=== PATIENT | female | born 1965 | race Caucasian/White ===

== ENCOUNTER → 2018-03-04 | Outpatient (REF) | payer OTHER ==
[~2018-03-04] MED LIST: AMLODIPINE BESYL5 MG PO; ATENOLOL50 MG PO; CIPROFLOXACN500 MG PO; DEMADEX100 MG PO; DIOVAN160 MG PO; FUROSEMIDE20 MG PO; IBUPROFEN200 MG PO; LORTAB 7.5-3251 TAB PO; LOTRISONE EX; MECLIZINE25 MG PO; METFORMIN500 M2 PO; OMEPRAZOLE10 MG PO; PREDNISONE20 MG PO; TORSEMIDE20 M1 PO; TRAMADOL HCL50 MG PO; XANAX0.25 MG PO; ZYLOPRIM100 MG PO
[2018-03-04 15:40] LABS: HEMATOCRIT 40.2 % (37.0-47.0); HEMOGLOBIN 13.9 g/dl (12.0-16.0); IMMATURE GRANULOCYTES 0.5 % (0.0-5.0); MEAN CELL VOLUME 87.6 fL CALC (80.0-100.0); MEAN CORPUSCULAR HGB 30.3 pG CALC (26.0-32.0); MEAN CORPUSCULAR HGB CONC 34.6 g/L CALC (32.0-36.0); NEUT# 3.88 thou/uL (2.00-7.15); RED BLOOD COUNT 4.59 mill/uL (4.20-5.60); RED CELL DISTRI WIDTH 13.5 % (11.5-15.5)
[2018-03-04 15:56] LABS: ALBUMIN 4.7 g/dL (3.2-5.0); ALKALINE PHOSPHATASE 82 u/l (38-126); AMYLASE 70 u/l (30-110); ANION GAP 14 (6-22 (CALC)); BILIRUBIN, TOTAL 0.4 mg/dL (0.0-1.4); BUN 9 mg/dL (7-17); BUN/CREATININE RATIO 13 (12-20 (CALC)); CALCULATED LDLCHOLESTEROL 143 mg/dL (62-129 (CALC)); CARBON DIOXIDE 30 mmol/l (22-30); CHLORIDE 101 mmol/l (95-108); CHOLESTEROL HDL RATIO 4.8 (<4.4 (CALC)); CREATININE 0.7 mg/dL (0.5-1.0); GFR > 60 ML/MIN (>=60 (CALC)); GFR FOR AFR.AMER. > 60 ML/MIN (>=60 (CALC)); HDL CHOLESTEROL 60 mg/dL (>=40); LIPASE 118 u/l (23-300); SGOT/AST 39 u/l (14-36); SODIUM 141 mmol/l (137-146); TOTAL CHOLESTEROL 286 mg/dl (0-199); TOTAL PROTEIN 8.3 g/dL (6.3-8.2); VLDL CHOLESTROL 83 mg/dl (2-49 (CALC))
[2018-03-04 15:59] LABS: TOTAL TRIGLYCERIDES 416 mg/dl (30-149)
== END | disposition home or self-care (01) | DRG 639 ==
LOC: LAB 15:23
PROVIDERS: ATTEND Nurse Practitioner Adult Health
DX: E11.9 Type 2 diabetes mellitus without complications (principal); I10 Essential (primary) hypertension; E78.49 Other hyperlipidemia; R10.9 Unspecified abdominal pain

== ENCOUNTER 2018-05-02 02:49 | Emergency (ER) | payer OTHER ==
[~2018-05-02] VITALS: Ht 157.5 cm; Wt 78.0 kg
[2018-05-02 04:12] LABS: INFLUENZA B NONE DETECTED (NONE DETECT)
[2018-05-02] MEDS ORDERED: AMOXICILLIN500 MG PO (04:23)
[2018-05-02 04:50] VITALS: BP 150/88
== END 2018-05-02 04:50 | disposition home or self-care (01) | DRG 153 ==
LOC: ED 02:49
PROVIDERS: Emergency Medicine
DX: H66.91 Otitis media, unspecified, right ear (principal); J06.9 Acute upper respiratory infection, unspecified; H92.01 Otalgia, right ear; R50.9 Fever, unspecified; R09.81 Nasal congestion; R05 Cough; R09.89 Other specified symptoms and signs involving the circulatory and respiratory systems

== ENCOUNTER 2018-06-07 16:52 | Emergency (ER) | payer OTHER ==
[~2018-06-07] VITALS: Ht 157.5 cm; Wt 81.8 kg
[~2018-06-07 16:52] MED LIST changes: +AMOXICILLIN500 MG PO
[2018-06-07 17:43] LABS: HEMATOCRIT 37.9 % (37.0-47.0); HEMOGLOBIN 12.9 g/dl (12.0-16.0); IMMATURE GRANULOCYTES 0.5 % (0.0-5.0); MEAN CELL VOLUME 86.9 fL CALC (80.0-100.0); MEAN CORPUSCULAR HGB 29.6 pG CALC (26.0-32.0); NEUT# 3.97 thou/uL (2.00-7.15); RED BLOOD COUNT 4.36 mill/uL (4.20-5.60); RED CELL DISTRI WIDTH 13.3 % (11.5-15.5)
[2018-06-07 17:45] LABS: URINE BILIRUBIN - DIPSTICK NEGATIVE (NEGATIVE); URINE BLOOD DIPSTICK NEGATIVE (NEGATIVE); URINE COLOR YELLOW; URINE GLUCOSE - DIPSTICK NEGATIVE (NEGATIVE); URINE KETONE NEGATIVE (NEGATIVE); URINE LEUK ESTERASE NEGATIVE (NEGATIVE); URINE NITRITE - DIPSTICK NEGATIVE (Negative); URINE PROTEIN - DIPSTICK NEGATIVE (NEG-TRACE); URINE UROBILINOGEN - DIPSTICK 0.2 E.U./dL (0.2)
[2018-06-07 17:57] LABS: ALBUMIN 4.7 g/dL (3.2-5.0); ALKALINE PHOSPHATASE 96 u/l (38-126); ANION GAP 17 (6-22 (CALC)); BILIRUBIN, TOTAL 0.7 mg/dL (0.0-1.4); BUN 13 mg/dL (7-17); BUN/CREATININE RATIO 15 (12-20 (CALC)); CARBON DIOXIDE 28 mmol/l (22-30); CHLORIDE 98 mmol/l (95-108); CREATININE 0.8 mg/dL (0.5-1.0); GFR > 60 ML/MIN (>=60 (CALC)); GFR FOR AFR.AMER. > 60 ML/MIN (>=60 (CALC)); LIPASE 84 u/l (23-300); POTASSIUM 3.7 mmol/l (3.5-5.1); SGOT/AST 42 u/l (14-36); SODIUM 139 mmol/l (137-146); TOTAL PROTEIN 7.8 g/dL (6.3-8.2)
[2018-06-07 19:52] VITALS: BP 173/81
== END 2018-06-07 19:52 | disposition home or self-care (01) | DRG 700 ==
LOC: ED 16:52
PROVIDERS: Family Medicine
DX: N28.1 Cyst of kidney, acquired (principal); I10 Essential (primary) hypertension; E11.9 Type 2 diabetes mellitus without complications; M32.9 Systemic lupus erythematosus, unspecified
CPT/HCPCS: Q9967

== ENCOUNTER 2019-06-20 | Emergency (ER) | payer BC ==
[2019-06-20] MEDS ORDERED: ALLOPURINOL100 MG PO (05:52)
[2019-06-20] MEDS ORDERED: LIPOFEN50 MG PO (05:53)
[2019-06-20] MEDS ORDERED: SULFASALAZIN500 M1 PO (05:54)
[2019-06-20 06:29] LABS: HEMATOCRIT 36.8 % (37.0-47.0); HEMOGLOBIN 12.2 g/dl (12.0-16.0); IMMATURE GRANULOCYTES 0.5 % (0.0-5.0); MEAN CELL VOLUME 89.8 fL CALC (80.0-100.0); MEAN CORPUSCULAR HGB 29.8 pG CALC (26.0-32.0); MEAN CORPUSCULAR HGB CONC 33.2 g/L CALC (32.0-36.0); NEUT# 3.41 thou/uL (2.00-7.15); RED BLOOD COUNT 4.1 mill/uL (4.20-5.60); RED CELL DISTRI WIDTH 13.2 % (11.5-15.5)
[2019-06-20 06:41] LABS: ALBUMIN 4.4 g/dL (3.2-5.0); ALKALINE PHOSPHATASE 72 u/l (38-126); ANION GAP 14 (6-22 (CALC)); BILIRUBIN, TOTAL 0.6 mg/dL (0.0-1.4); BUN 16 mg/dL (7-17); BUN/CREATININE RATIO 23 (12-20 (CALC)); CARBON DIOXIDE 28 mmol/l (22-30); CHLORIDE 98 mmol/l (95-108); CREATININE 0.7 mg/dL (0.5-1.0); GFR > 60 ML/MIN (>=60 (CALC)); GFR FOR AFR.AMER. > 60 ML/MIN (>=60 (CALC)); POTASSIUM 3.4 mmol/l (3.5-5.1); SGOT/AST 39 u/l (14-36); SODIUM 137 mmol/l (137-146); TOTAL PROTEIN 7.3 g/dL (6.3-8.2)
[2019-06-20] MEDS ORDERED: TAM75CAP PO (06:57)
[2019-06-20] MEDS ORDERED: TORADOL PO (06:57)
== END 2019-06-20 07:17 | disposition home or self-care (01) | DRG 552 ==
PROVIDERS: Family Medicine
DX: M53.3 Sacrococcygeal disorders, not elsewhere classified (principal); J10.1 Influenza due to other identified influenza virus with other respiratory manifestations; E11.9 Type 2 diabetes mellitus without complications; I10 Essential (primary) hypertension

== ENCOUNTER 2024-06-01 07:56 | Emergency (ER) | payer BC ==
[~2024-06-01] VITALS: Ht 157.5 cm; Wt 92.0 kg
[2024-06-01] VITALS (7 sets, daily range): BP systolic 179–239; BP diastolic 99–121
[~2024-06-01 07:56] MED LIST changes: +ALLOPURINOL100 MG PO; +HYDRALAZINE10 MG PO; +LIPOFEN50 MG PO; +NORVASC5 M1 PO; +SULFASALAZIN500 M1 PO; +TAM75CAP PO; +TORADOL PO
[2024-06-01] MEDS ORDERED: LOSARTAN Potassium 50 MG/TAB PO ONE (08:20)
[2024-06-01] MEDS ORDERED: hydroCHLOROthiazide 25 MG/TAB PO ONE (08:20)
[2024-06-01] MEDS ORDERED: HYDROCHLOROT25 MG PO (08:21)
[2024-06-01] MEDS ORDERED: LOSARTAN POTASS50 MG PO (08:21)
[2024-06-01] MEDS ORDERED: cloNIDine HCL 0.1 MG/TAB PO ONE (08:25)
== END 2024-06-01 09:24 | disposition left against medical advice (07) | DRG 305 ==
LOC: ED 07:56
DX: I10 Essential (primary) hypertension (principal); Z53.29 Procedure and treatment not carried out because of patient's decision for other reasons